=== PATIENT | male | born 1985 | race Caucasian/White ===

== ENCOUNTER 2016-04-07 10:49 | Emergency (ER) | payer SELFPAY ==
[2016-04-07] MEDS ORDERED: OPTIRAY 350 100 ML VIAL HMH IV ONE (10:50)
[2016-04-07] MEDS ORDERED: DILAUDID 1 MG/ML AMP ONE (13:25)
== END 2016-04-07 15:25 | disposition home or self-care (01) ==
LOC: ER 10:49
DX: R10.9 Unspecified abdominal pain (principal); F17.210 Nicotine dependence, cigarettes, uncomplicated
CPT/HCPCS: 36415; 74177; 80053; 81003; 83690; 85025; 96361; 96374; 96375; 96376